=== PATIENT | female | born 1995 | race Caucasian/White ===

== ENCOUNTER 2023-02-18 19:37 | Day surgery (SDC) | payer OTHER ==
[2023-02-18] MEDS ORDERED: Acetaminophen 500 MG TAB ONE (20:28)
[2023-02-18 21:36] VITALS: BMI 33.9
[2023-02-18] MEDS ORDERED: hydrALAZINE 20 MG/ML VIAL SLOW IVP PRN (21:43)
[2023-02-18 23:24] LABS: INR-International Normal Ratio 0.9; Prothrombin Time 9.9 sec (9.5-12.1)
== END 2023-02-19 00:10 | disposition home or self-care (01) ==
LOC: CSHERS 19:37 → CSHLD/OP 21:16
PROVIDERS: ATTEND Obstetrics & Gynecology
DX: O9A.213 Injury, poisoning and certain other consequences of external causes complicating pregnancy, third trimester (principal); S40.021A Contusion of right upper arm, initial encounter; S80.02XA Contusion of left knee, initial encounter; V89.2XXA Person injured in unspecified motor-vehicle accident, traffic, initial encounter; Z79.899 Other long term (current) drug therapy; Z3A.29 29 weeks gestation of pregnancy
CPT/HCPCS: 76819; 85610; 85730; 86850; 86900; 86901; 99282; 99283; G0390

== ENCOUNTER 2023-04-25 02:28 | Inpatient (IN) | payer OTHER ==
[2023-04-25 02:59] VITALS: BMI 37.1
[2023-04-25] MEDS ORDERED: Carboprost 250 MCG/ML AMP IM PRN (03:26)
[2023-04-25] MEDS ORDERED: Promethazine HCl 25 MG/ML VIAL IM PRN (03:26)
[2023-04-25] MEDS ORDERED: fentaNYL 50 mcg/mL 1 mL Vial SLOW IVP PRN (03:26)
[2023-04-25] MEDS ORDERED: hydrALAZINE 20 MG/ML VIAL SLOW IVP PRN ×2 (03:26→05:02)
[2023-04-25] MEDS ORDERED: Lidocaine 1% (PF) 30 ML VIAL SC PRN (03:26)
[2023-04-25] MEDS ORDERED: Misoprostol 200 MCG TAB PR PRN (03:26)
[2023-04-25] MEDS ORDERED: Tranexamic Acid 1,000 MG/10 ML VIAL IVP PRN (03:26)
[2023-04-25] MEDS ORDERED: Acetaminophen 500 MG TAB PO PRN (03:26)
[2023-04-25] MEDS ORDERED: Docusate 100 MG CAP PO PRN (03:26)
[2023-04-25] MEDS ORDERED: Diphenoxylate HCl/Atropine Tablet PO PRN (03:26)
[2023-04-25] MEDS ORDERED: Methylergonovine 0.2 MG/ML VIAL IM PRN ×2 (03:26→05:02)
[2023-04-25] MEDS ORDERED: Ondansetron PF 4 MG/2 ML Vial IVP PRN (03:26)
[2023-04-25] MEDS ORDERED: Oxytocin 30 units/NS 500 ML 500 ML IV SCH ×3 (03:30→05:15)
[2023-04-25] MEDS ORDERED: Lactated Ringer's 1,000 ML IV SCH (03:30)
[2023-04-25 03:57] LABS: Hematocrit 35.7 % (34.9-44.5); Hemoglobin 11.2 g/dL (12.0-15.5); Mean Corpuscular HGB CONC 31.4 g/dL (32.0-36.0); Mean Corpuscular Hemoglobin 23.9 pg (27.0-33.0); Mean Corpuscular Volume 76.3 fl (81.6-98.3); Mean Platelet Volume 9.6 fl (7.4-10.4); Platelet Count 263 10x3/uL (150-450); RBC Distribution Width 15.6 % (11.5-14.5); Red Blood Cell (RBC) Count 4.68 10x6/uL (3.90-5.03); White Blood Cell (WBC) Count 11.2 10x3/uL (3.5-10.5)
[2023-04-25] MEDS ORDERED: fentaNYL/Ropivacaine Epidural 100 ML ONE (04:20)
[2023-04-25] MEDS ORDERED: fentaNYL 50 mcg/mL 1 mL Vial ONE (04:24)
[2023-04-25 04:29] LABS: HBSAg Index 0.16 S/CO (0-0.99); Hep B Surf Ag - L&D Non-Reactive S/CO (NonReactive)
[2023-04-25 04:30] LABS: Syphilis Antibody Nonreactive (Nonreactive); Syphilis Antibody Index 0.12 S/CO (<1.00 Non-Reactive)
[2023-04-25] MEDS ORDERED: Methylergonovine 0.2 MG TAB PO PRN (05:02)
[2023-04-25] MEDS ORDERED: Preparation H Ointment 28 GM TUBE PR PRN (05:02)
[2023-04-25] MEDS ORDERED: Boostrix 0.5 ML (Tdap) VIAL (>/=7 yrs of age) IM ONE (05:02)
[2023-04-25] MEDS ORDERED: Bisacodyl 10 MG SUPP PR PRN (05:02)
[2023-04-25] MEDS ORDERED: Lanolin Ointment 7 GM TUBE TOP PRN (05:02)
[2023-04-25] MEDS ORDERED: Misoprostol 200 MCG TAB VAG PRN (05:02)
[2023-04-25] MEDS ORDERED: Milk Of Magnesia 30 ML UDCUP PO PRN (05:02)
[2023-04-25] MEDS ORDERED: Measles/Mumps/Rubella 10 MCG/0.5 ML VIAL SC ONE (05:15)
[2023-04-25] MEDS: Prenatal Vitamin 1 TAB PO SCH (08:12)
[2023-04-25] MEDS: Docusate 100 MG CAP PO SCH ×2 (08:13→22:18)
[2023-04-25] MEDS: Ferrous Sulfate 325 MG TAB PO SCH ×2 (08:19→17:25)
[2023-04-25] MEDS: Ibuprofen 800 MG TAB PO SCH ×3 (10:52→19:06)
[2023-04-25] MEDS ORDERED: Cyclobenzaprine 10 MG TAB PO PRN (11:05)
[2023-04-26] MEDS: Ibuprofen 800 MG TAB PO SCH (05:07)
[2023-04-26] MEDS ORDERED: Measles/Mumps/Rubella 10 MCG/0.5 ML VIAL SC ONE (06:43)
[2023-04-26] MEDS: Ferrous Sulfate 325 MG TAB PO SCH (07:27)
[2023-04-26] MEDS: Docusate 100 MG CAP PO SCH (09:23)
[2023-04-26] MEDS: Prenatal Vitamin 1 TAB PO SCH (09:23)
[2023-04-26 11:19] VITALS: BP 106/64; TEMP 98.4
== END 2023-04-26 12:45 | disposition home or self-care (01) | DRG 807 ==
LOC: CSHLD/OP 02:28 → CSHLD 03:25 → CSHPP 06:58
PROVIDERS: ADMIT Family Medicine; ATTEND Family Medicine
PROC: 10E0XZZ Delivery of Products of Conception, External Approach (ICD-10-PCS; principal; 2023-04-25)
DX: O42.02 Full-term premature rupture of membranes, onset of labor within 24 hours of rupture (principal); Z37.0 Single live birth; O48.0 Post-term pregnancy; Z3A.40 40 weeks gestation of pregnancy; O99.214 Obesity complicating childbirth; O69.2XX0 Labor and delivery complicated by other cord entanglement, with compression, not applicable or unspecified
CPT/HCPCS: 85027; 86780; 86850; 86900; 86901; 87340; 90707; 99285; J2590; J3010; J7120

== ENCOUNTER 2024-11-23 06:00 | Inpatient (IN) | payer OTHER ==
[2024-11-23 06:36] VITALS: BMI 37.9
[2024-11-23] MEDS ORDERED: Lidocaine 1% (PF) 30 ML VIAL SC PRN (07:07)
[2024-11-23] MEDS ORDERED: Diphenoxylate HCl/Atropine Tablet PO PRN ×2 (07:07)
[2024-11-23] MEDS ORDERED: Carboprost 250 MCG/ML AMP IM PRN (07:07)
[2024-11-23] MEDS ORDERED: Tranexamic Acid 1,000 MG/10 ML VIAL IVP PRN (07:07)
[2024-11-23] MEDS ORDERED: hydrALAZINE 20 MG/ML VIAL SLOW IVP PRN ×2 (07:07→22:30)
[2024-11-23] MEDS ORDERED: Acetaminophen 500 MG TAB PO PRN (07:07)
[2024-11-23] MEDS ORDERED: Oxytocin 30 units/NS 500 ML 500 ML IV SCH (07:15)
[2024-11-23 07:28] LABS: Hematocrit 36.1 % (34.9-44.5); Hemoglobin 11.1 g/dL (12.0-15.5); Mean Corpuscular Hemoglobin 23.5 pg (27.0-33.0); Mean Corpuscular Volume 76.5 fL (81.6-98.3); Platelet Count 248 10x3/uL (150-450); Red Blood Cell (RBC) Count 4.72 10x6/uL (3.90-5.03); White Blood Cell (WBC) Count 9.34 10x3/uL (3.5-10.5)
[2024-11-23 07:57] LABS: Hep B Surf Ag - L&D Non-Reactive S/CO (NonReactive)
[2024-11-23 07:59] LABS: Syphilis Antibody Index 0.08 S/CO (<1.00 Non-Reactive)
[2024-11-23] MEDS: Calcium Carbonate 500 MG ChewTAB PO PRN (09:53)
[2024-11-23] MEDS: Oxytocin 30 units/NS 500 ML 500 ML IV SCH ×2 (13:17→22:44)
[2024-11-23] MEDS: fentaNYL/Ropivacaine Epidural 100 ML ONE (15:06)
[2024-11-23] MEDS: Ondansetron PF 4 MG/2 ML Vial IVP PRN (21:01)
[2024-11-23] MEDS: Methylergonovine 0.2 MG/ML VIAL IM PRN (22:22)
[2024-11-23] MEDS ORDERED: Bisacodyl 10 MG SUPP PR PRN (22:30)
[2024-11-23] MEDS ORDERED: Milk Of Magnesia 30 ML UDCUP PO PRN (22:30)
[2024-11-24] MEDS: Ibuprofen 800 MG TAB PO SCH (01:48)
[2024-11-24] MEDS ORDERED: Ibuprofen 800 MG TAB PO SCH (06:00)
[2024-11-24 07:01] LABS: #Basophils 0.03 10x3/uL (0.0-0.2); #Eosinophils 0.34 10x3/uL (0.0-0.5); #Monocytes 0.76 10x3/uL (0.0-1.1); #Neutrophils 10.31 10x3/uL (1.5-8.4); %Basophils 0.2 % (0.0-2.0); %Eosinophils 2.5 % (0.0-6.0); %Lymphocytes 15.9 % (18.0-47.0); %Monocytes 5.5 % (0.0-10.0); %Neutrophils 75.2 % (40.0-75.0); Hematocrit 39.1 % (34.9-44.5); Hemoglobin 12.0 g/dL (12.0-15.5); Mean Corpuscular Hemoglobin 23.7 pg (27.0-33.0); Mean Corpuscular Volume 77.1 fL (81.6-98.3); Platelet Count 234 10x3/uL (150-450); Red Blood Cell (RBC) Count 5.07 10x6/uL (3.90-5.03); White Blood Cell (WBC) Count 13.71 10x3/uL (3.5-10.5)
[2024-11-24] MEDS: Ferrous Sulfate 325 MG TAB PO SCH (08:21)
[2024-11-24] MEDS: Acetaminophen 500 MG TAB PO PRN (12:03)
[2024-11-24 20:52] VITALS: BP 108/64; TEMP 97.8
== END 2024-11-24 23:15 | disposition home or self-care (01) | DRG 807 ==
LOC: CSHLD 06:10 → CSHPP 11-24 00:24
PROVIDERS: ADMIT Obstetrics & Gynecology; ATTEND Obstetrics & Gynecology
PROC: 10E0XZZ Delivery of Products of Conception, External Approach (ICD-10-PCS; principal; 2024-11-23)
DX: O99.02 Anemia complicating childbirth (principal); Z37.0 Single live birth; O99.214 Obesity complicating childbirth; O99.62 Diseases of the digestive system complicating childbirth; K21.9 Gastro-esophageal reflux disease without esophagitis; E66.811 Obesity, class 1; Z3A.39 39 weeks gestation of pregnancy; Z79.899 Other long term (current) drug therapy
CPT/HCPCS: 51702; 85025; 85027; 86780; 86850; 86900; 86901; 87340; 96365; 96366; J2210; J2405; J2590; Q0138